=== PATIENT | male | born 1960 | race Caucasian/White ===

== ENCOUNTER 2021-04-14 19:10 | Inpatient (IN) | payer MEDICAID ==
[~2021-04-14] VITALS: Ht 188 cm; Wt 76.0 kg
[~2021-04-14 19:10] MED LIST: BENZ2TAB10 PO; DIPH25 PO; GABA-1201 PO; GLIP10 PO; INSLAN SQ; QUET100T PO; QUET200T PO
[2021-04-14 20:57] LABS: BASOPHILS % (AUTO) 0.6 % (0.0-2.0); EOSINOPHILS % (AUTO) 0.3 % (1.0-6.0); HEMATOCRIT 43.3 % (41-53); HEMOGLOBIN 14.2 g/dL (13.5-17.5); LYMPHOCYTES # (AUTO) 3.6 K/uL (1.0-4.8); LYMPHOCYTES % (AUTO) 26.8 % (22.0-44.0); MEAN CORPUSCULAR HEMOGLOBIN 28.3 pg (26.0-34.0); MEAN CORPUSCULAR HGB CONC 32.8 G/dL (31.0-37.0); MEAN CORPUSCULAR VOLUME 86 fL (80-100); MONOCYTES % (AUTO) 7.3 % (2.0-9.0); NEUTROPHILS # (AUTO) 8.7 K/uL (1.8-7.7); PLATELET COUNT (AUTO) 428 K/uL (150-450); RED BLOOD CELL COUNT(AUTO) 5.01 MIL/uL (4.50-5.90); RED CELL DISTRIBUTION WIDTH 14.2 % (11.5-14.5)
[2021-04-14 21:12] LABS: ANION GAP 10 mmol/L (8-16); CALCIUM, TOTAL 8.9 mg/dL (8.8-10.5); CARBON DIOXIDE 28 mmol/L (22-29); CHLORIDE 104 mmol/L (98-107); CREATININE 0.61 mg/dL (0.60-1.30); GLOMERULAR FILTR. RATE CALC > 60 mL/min (>60); GLUCOSE,RANDOM 177 mg/dL (70-110); SODIUM SERUM 142 mmol/L (136-145); UREA NITROGEN, BLOOD 14 mg/dL (7-18)
[2021-04-14 21:18] LABS: ALANINE AMINOTRANSFERASE 38 U/L (12-78); ALBUMIN 2.9 g/dL (3.4-5.0); ALKALINE PHOSPHATASE 149 U/L (46-116); ASPARTATE AMINOTRANSFERASE 31 U/L (15-37); BILIRUBIN,TOTAL 0.4 mg/dL (0.1-1.0); SALICYLATE < 2.8 mg/dL (2.8-20.0); TOTAL PROTEIN, SERUM 7.2 g/dL (6.4-8.2)
[2021-04-14 21:29] LABS: ACETAMINOPHEN < 2 mcg/mL (10-30)
[2021-04-14 22:23] LABS: COVID AG,FIA SOURCE NASAL SWAB
[2021-04-14] MEDS ORDERED: ACETAMINOPHEN 500 MG TABLET PO ONE (22:45)
[2021-04-14] MEDS ORDERED: ACETAMINOPHEN 650 MG/20.3 ML SOLUTION UDCUP PO ONE (22:45)
[2021-04-14] MEDS ORDERED: IBUPROFEN 600 MG TABLET PO ONE (22:45)
[2021-04-14] MEDS ORDERED: OLANZapine 5 MG RAPDIS TABLET PO PRN (23:00)
[2021-04-14 23:01] LABS: APPEARANCE,URINE CLEAR (CLEAR); BILIRUBIN,URINE NEGATIVE (NEGATIVE); GLUCOSE, URINE (UA) NEGATIVE (NEGATIVE); KETONES,URINE NEGATIVE (NEGATIVE); LEUKOCYTE ESTERASE ,URINE NEGATIVE (NEGATIVE); NITRATE,URINE NEGATIVE (NEGATIVE); OCCULT BLOOD,URINE NEGATIVE (NEGATIVE); PROTEIN,URINE SEE CONFIRM (NEGATIVE); UROBILINOGEN,URINE 0.2 mg/dL (<=1.0)
[2021-04-14 23:07] LABS: AMPHET/METH SCREEN,URINE NEGATIVE (NEGATIVE); BARBITURATE SCREEN, URINE NEGATIVE (NEGATIVE); BENZODIAZEPINES SCREEN,URINE NEGATIVE (NEGATIVE); CANNABINOID SCREEN,URINE NEGATIVE (NEGATIVE); COCAINE SCREEN,URINE NEGATIVE (NEGATIVE); METHADONE SCREEN, URINE NEGATIVE (NEGATIVE); OPIATE SCREEN,URINE NEGATIVE (NEGATIVE)
[2021-04-14 23:09] LABS: PHENCYCLIDINE SCREEN,URINE NEGATIVE (NEGATIVE); SULFOSALICYLIC ACID,URINE 1+ (Negative)
[2021-04-14 23:10] LABS: BACTERIA,URINE None Seen /HPF (None Seen); RBC,URINE None Seen /HPF (0-2); SQUAMOUS EPITHELIAL CELL,UR None Seen /LPF (None Seen); WBC,URINE None Seen /HPF (0-5)
[2021-04-15] MEDS: LORazepam 2 MG TABLET PO PRN ×3 (02:29→21:20)
[2021-04-15 05:52] LABS: CHOL/HDL RATIO 2.4 (4.2-7.3)
[2021-04-15] MEDS ORDERED: DEXTROSE 50%-WATER 25 GM/50 ML SYRINGE IVP PRN (11:00)
[2021-04-15] MEDS ORDERED: INSULIN GLARGINE,HUM.REC.ANLOG 100 UNITS/ML SQ SCH (11:00)
[2021-04-15 12:29] LABS: GLUCOSE,POINT OF CARE 328 MG/DL (70-110)
[2021-04-15 12:29] LABS: GLUCOSE,POINT OF CARE 289 MG/DL (70-110)
[2021-04-15 20:58] VITALS: BP 143/60
[2021-04-15 21:05] VITALS: BP 143/60
[2021-04-15 21:43] LABS: GLUCOMETER DEV NAME(LOC) 3E.I 2; GLUCOSE,POINT OF CARE 444 MG/DL (70-110)
[2021-04-15] MEDS ORDERED: PNEUMOCOCCAL VACCINE POLYVALENT 0.5 ML VIAL [PPSV23] IM. ONE (21:45)
[2021-04-15] MEDS ORDERED: INSULIN LISPRO 100 UNITS/ML SQ ONE (21:45)
[2021-04-16] MEDS: NICOTINE POLACRILEX 2 MG LOZENGE PO PRN ×2 (05:08→13:53)
[2021-04-16 06:42] LABS: GLUCOMETER DEV NAME(LOC) 3E.I 2; GLUCOSE,POINT OF CARE 292 MG/DL (70-110)
[2021-04-16] MEDS: INSULIN LISPRO 100 UNITS/ML SQ PRN ×2 (07:03→10:55)
[2021-04-16] MEDS: INSULIN GLARGINE,HUM.REC.ANLOG 100 UNITS/ML SQ SCH ×2 (08:29→17:51)
[2021-04-16] MEDS: LORazepam 2 MG TABLET PO PRN (09:02)
[2021-04-16 09:58] VITALS: BP 153/88
[2021-04-16 11:12] LABS: GLUCOMETER DEV NAME(LOC) 3E.I 2; GLUCOSE,POINT OF CARE 336 MG/DL (70-110)
[2021-04-16 17:58] LABS: GLUCOMETER DEV NAME(LOC) 3E.I 2; GLUCOSE,POINT OF CARE 358 MG/DL (70-110)
[2021-04-16] MEDS: QUEtiapine FUMARATE 100 MG TABLET PO SCH (20:10)
[2021-04-17 03:55] VITALS: BP 129/74
[2021-04-17] MEDS: LORazepam 2 MG TABLET PO PRN ×2 (03:56→16:03)
[2021-04-17 04:31] LABS: GLUCOMETER DEV NAME(LOC) 3E.I 2; GLUCOSE,POINT OF CARE 246 MG/DL (70-110)
[2021-04-17] MEDS: INSULIN LISPRO 100 UNITS/ML SQ PRN ×4 (06:58→21:20)
[2021-04-17] MEDS: DULoxetine HCL 30 MG CAPSULE PO SCH (09:00)
[2021-04-17] MEDS: INSULIN GLARGINE,HUM.REC.ANLOG 100 UNITS/ML SQ SCH ×2 (09:05→17:47)
[2021-04-17] MEDS ORDERED: ONDANSETRON HCL 4 MG TABLET PO PRN (09:15)
[2021-04-17] MEDS ORDERED: LOPERAMIDE HCL 2 MG CAPSULE PO PRN (09:15)
[2021-04-17] MEDS ORDERED: ALBUTEROL SULFATE HFA 90 MCG/PUFF 8 GM INHALER IH PRN (09:15)
[2021-04-17] MEDS ORDERED: NICOTINE 14 MG/24 HOUR PATCH TD PRN ×2 (09:15→09:45)
[2021-04-17] MEDS ORDERED: DOCUSATE SODIUM 100 MG CAPSULE PO PRN (09:15)
[2021-04-17] MEDS ORDERED: PETROLATUM,WHITE 28 GM JELLY TP PRN (09:15)
[2021-04-17] MEDS ORDERED: CloNIDine HCL 0.1 MG TABLET PO PRN (09:15)
[2021-04-17 11:34] LABS: GLUCOMETER DEV NAME(LOC) 3E.I 2; GLUCOSE,POINT OF CARE 366 MG/DL (70-110)
[2021-04-17 16:03] VITALS: BP 155/74
[2021-04-17 16:26] LABS: GLUCOMETER DEV NAME(LOC) 3E.I 2; GLUCOSE,POINT OF CARE 235 MG/DL (70-110)
[2021-04-17] MEDS: ACETAMINOPHEN/CODEINE 300-30 MG TABLET PO PRN (17:43)
[2021-04-17 17:48] VITALS: BP 135/70
[2021-04-17 18:43] VITALS: BP 140/76
[2021-04-17] MEDS: QUEtiapine FUMARATE 100 MG TABLET PO SCH (20:17)
[2021-04-17 20:31] LABS: GLUCOMETER DEV NAME(LOC) 3E.I 2; GLUCOSE,POINT OF CARE 361 MG/DL (70-110)
[2021-04-18] MEDS: ZOLPIDEM TARTRATE 10 MG TABLET PO PRN (01:34)
[2021-04-18] MEDS: LORazepam 2 MG TABLET PO PRN ×2 (04:03→16:45)
[2021-04-18] MEDS: NICOTINE POLACRILEX 2 MG LOZENGE PO PRN ×2 (04:06→15:16)
[2021-04-18 05:40] VITALS: BP 130/69
[2021-04-18] MEDS: ACETAMINOPHEN/CODEINE 300-30 MG TABLET PO PRN ×2 (05:45→17:50)
[2021-04-18 06:24] LABS: GLUCOMETER DEV NAME(LOC) 3E.I 2; GLUCOSE,POINT OF CARE 319 MG/DL (70-110)
[2021-04-18] MEDS: INSULIN LISPRO 100 UNITS/ML SQ PRN ×2 (06:45→11:26)
[2021-04-18] MEDS: INSULIN GLARGINE,HUM.REC.ANLOG 100 UNITS/ML SQ SCH ×2 (08:21→17:01)
[2021-04-18] MEDS: DULoxetine HCL 30 MG CAPSULE PO SCH (08:24)
[2021-04-18 11:37] LABS: GLUCOMETER DEV NAME(LOC) 3E.I 2; GLUCOSE,POINT OF CARE 258 MG/DL (70-110)
[2021-04-18 16:00] VITALS: BP 131/75
[2021-04-18 16:45] VITALS: BP 147/86
[2021-04-18] MEDS ORDERED: INSULIN LISPRO 100 UNITS/ML SQ ONE (17:15)
[2021-04-18 17:35] LABS: GLUCOMETER DEV NAME(LOC) 3E.I 2; GLUCOSE,POINT OF CARE 405 MG/DL (70-110)
[2021-04-18 17:45] VITALS: BP 142/69
[2021-04-18 17:50] VITALS: BP 146/80
[2021-04-18 18:50] VITALS: BP 139/86
[2021-04-18] MEDS: QUEtiapine FUMARATE 100 MG TABLET PO SCH (20:39)
[2021-04-19] VITALS (8 sets, daily range): BP systolic 124–139; BP diastolic 67–78
[2021-04-19] MEDS: ACETAMINOPHEN 325 MG TABLET PO PRN (00:59)
[2021-04-19] MEDS: ZOLPIDEM TARTRATE 10 MG TABLET PO PRN (01:00)
[2021-04-19] MEDS: NICOTINE POLACRILEX 2 MG LOZENGE PO PRN (01:00)
[2021-04-19 01:19] LABS: GLUCOMETER DEV NAME(LOC) 3E.I 2; GLUCOSE,POINT OF CARE 178 MG/DL (70-110)
[2021-04-19] MEDS: LORazepam 2 MG TABLET PO PRN ×2 (05:28→18:08)
[2021-04-19 05:45] LABS: GLUCOMETER DEV NAME(LOC) 3E.I 2; GLUCOSE,POINT OF CARE 237 MG/DL (70-110)
[2021-04-19] MEDS: INSULIN LISPRO 100 UNITS/ML SQ PRN ×2 (06:45→17:20)
[2021-04-19] MEDS: MULTIVITAMINS WITH MINERALS, THERAPEUTIC TABLET PO SCH (08:54)
[2021-04-19] MEDS: ACETAMINOPHEN/CODEINE 300-30 MG TABLET PO PRN ×2 (08:55→20:44)
[2021-04-19] MEDS: DULoxetine HCL 30 MG CAPSULE PO SCH (09:00)
[2021-04-19] MEDS: INSULIN GLARGINE,HUM.REC.ANLOG 100 UNITS/ML SQ SCH ×2 (09:21→17:21)
[2021-04-19 11:05] LABS: COVID AG,FIA SOURCE NASOPHARYNGEAL
[2021-04-19 17:48] LABS: GLUCOMETER DEV NAME(LOC) 3E.I 2; GLUCOSE,POINT OF CARE 385 MG/DL (70-110)
[2021-04-19] MEDS: IBUPROFEN 400 MG TABLET PO PRN (19:15)
[2021-04-19] MEDS: MIRTAZAPINE 15 MG TABLET PO SCH (20:43)
[2021-04-20 08:38] VITALS: BP 154/90
[2021-04-20] MEDS: ACETAMINOPHEN/CODEINE 300-30 MG TABLET PO PRN ×2 (08:38→22:07)
[2021-04-20] MEDS: INSULIN GLARGINE,HUM.REC.ANLOG 100 UNITS/ML SQ SCH ×2 (08:52→17:41)
[2021-04-20] MEDS: MULTIVITAMINS WITH MINERALS, THERAPEUTIC TABLET PO SCH (08:53)
[2021-04-20 08:58] LABS: GLUCOMETER DEV NAME(LOC) 3E.I 2; GLUCOSE,POINT OF CARE 210 MG/DL (70-110)
[2021-04-20 09:40] VITALS: BP 154/90
[2021-04-20] MEDS: LORazepam 2 MG TABLET PO PRN (11:26)
[2021-04-20] MEDS: INSULIN LISPRO 100 UNITS/ML SQ PRN (11:46)
[2021-04-20 11:55] LABS: GLUCOMETER DEV NAME(LOC) 3E.I 2; GLUCOSE,POINT OF CARE 194 MG/DL (70-110)
[2021-04-20] MEDS: NICOTINE POLACRILEX 2 MG LOZENGE PO PRN (15:59)
[2021-04-20 16:29] LABS: GLUCOMETER DEV NAME(LOC) 3E.I 2; GLUCOSE,POINT OF CARE 232 MG/DL (70-110)
[2021-04-20 18:09] VITALS: BP 145/85
[2021-04-20] MEDS: IBUPROFEN 400 MG TABLET PO PRN (18:09)
[2021-04-20 19:09] VITALS: BP 146/86
[2021-04-20] MEDS: MIRTAZAPINE 15 MG TABLET PO SCH (20:26)
[2021-04-20 22:07] VITALS: BP 147/84
[2021-04-20 23:07] VITALS: BP_SYST 145; BP_SYST 146; BP_DIAS 75; BP_DIAS 84
[2021-04-21 02:39] VITALS: BP 149/78
[2021-04-21] MEDS: MAG HYDROX/AL HYDROX/SIMETH ES 30 ML SUSPENSION UDCUP PO PRN (05:27)
[2021-04-21 05:48] LABS: GLUCOMETER DEV NAME(LOC) 3E.I 2; GLUCOSE,POINT OF CARE 252 MG/DL (70-110)
[2021-04-21] MEDS: INSULIN LISPRO 100 UNITS/ML SQ PRN ×2 (06:44→21:13)
[2021-04-21] MEDS: NICOTINE POLACRILEX 2 MG LOZENGE PO PRN (07:41)
[2021-04-21] MEDS: MULTIVITAMINS WITH MINERALS, THERAPEUTIC TABLET PO SCH (07:42)
[2021-04-21] MEDS: INSULIN GLARGINE,HUM.REC.ANLOG 100 UNITS/ML SQ SCH ×2 (07:43→17:24)
[2021-04-21 08:40] VITALS: BP 140/74
[2021-04-21] MEDS: ACETAMINOPHEN/CODEINE 300-30 MG TABLET PO PRN ×2 (08:42→17:58)
[2021-04-21] MEDS: CEPHALEXIN MONOHYDRATE 500 MG CAPSULE PO SCH ×2 (13:00→16:55)
[2021-04-21 16:45] LABS: GLUCOMETER DEV NAME(LOC) 3E.I 2; GLUCOSE,POINT OF CARE 275 MG/DL (70-110)
[2021-04-21] MEDS: SULFAMETHOX/TRIMETH DS 800-160 MG/TABLET PO SCH (16:55)
[2021-04-21 17:58] VITALS: BP 147/93
[2021-04-21 18:58] VITALS: BP 139/89
[2021-04-21] MEDS: MIRTAZAPINE 15 MG TABLET PO SCH (20:09)
[2021-04-21 20:56] LABS: GLUCOMETER DEV NAME(LOC) 3E.I 2; GLUCOSE,POINT OF CARE 301 MG/DL (70-110)
[2021-04-22] MEDS: MAG HYDROX/AL HYDROX/SIMETH ES 30 ML SUSPENSION UDCUP PO PRN (01:44)
[2021-04-22] MEDS: ACETAMINOPHEN 325 MG TABLET PO PRN (01:45)
[2021-04-22 02:35] VITALS: BP 152/80
[2021-04-22] MEDS: LORazepam 2 MG TABLET PO PRN ×2 (02:36→12:48)
[2021-04-22] MEDS: GuaiFENesin/D-METHORPHAN [SUGAR-FREE] 200-20MG/10 ML SYRUP UDCUP PO PRN ×3 (02:43→15:11)
[2021-04-22 08:05] VITALS: BP 158/73
[2021-04-22] MEDS: INSULIN GLARGINE,HUM.REC.ANLOG 100 UNITS/ML SQ SCH ×2 (08:06→17:00)
[2021-04-22] MEDS: ACETAMINOPHEN/CODEINE 300-30 MG TABLET PO PRN ×2 (08:07→20:03)
[2021-04-22 08:17] LABS: GLUCOMETER DEV NAME(LOC) 3E.I 2; GLUCOSE,POINT OF CARE 204 MG/DL (70-110)
[2021-04-22] MEDS: CEPHALEXIN MONOHYDRATE 500 MG CAPSULE PO SCH ×3 (09:00→17:00)
[2021-04-22] MEDS: SULFAMETHOX/TRIMETH DS 800-160 MG/TABLET PO SCH ×2 (09:00→17:00)
[2021-04-22] MEDS: MULTIVITAMINS WITH MINERALS, THERAPEUTIC TABLET PO SCH (10:55)
[2021-04-22] MEDS: NICOTINE POLACRILEX 2 MG LOZENGE PO PRN (15:11)
[2021-04-22 20:03] VITALS: BP 145/78
[2021-04-22] MEDS: MIRTAZAPINE 15 MG TABLET PO SCH ×2 (20:07→21:11)
[2021-04-22 21:03] VITALS: BP_SYST 140; BP_SYST 142; BP_DIAS 75
[2021-04-23] MEDS: NICOTINE POLACRILEX 2 MG LOZENGE PO PRN (02:34)
[2021-04-23] MEDS: LORazepam 2 MG TABLET PO PRN ×2 (02:34→15:00)
[2021-04-23] MEDS: ACETAMINOPHEN/CODEINE 300-30 MG TABLET PO PRN ×3 (05:59→18:02)
[2021-04-23 06:02] VITALS: BP 138/70
[2021-04-23 06:18] LABS: BASOPHILS % (AUTO) 1.2 % (0.0-2.0); EOSINOPHILS % (AUTO) 2.2 % (1.0-6.0); HEMATOCRIT 45.2 % (41-53); LYMPHOCYTES # (AUTO) 3.4 K/uL (1.0-4.8); LYMPHOCYTES % (AUTO) 31.9 % (22.0-44.0); MEAN CORPUSCULAR HEMOGLOBIN 28.8 pg (26.0-34.0); MEAN CORPUSCULAR HGB CONC 33.2 G/dL (31.0-37.0); MEAN CORPUSCULAR VOLUME 87 fL (80-100); MONOCYTES # (AUTO) 1.1 K/uL (0.1-1.0); MONOCYTES % (AUTO) 10.1 % (2.0-9.0); NEUTROPHILS # (AUTO) 5.9 K/uL (1.8-7.7); NEUTROPHILS % (AUTO) 54.6 % (40.0-70.0); PLATELET COUNT (AUTO) 566 K/uL (150-450); RED BLOOD CELL COUNT(AUTO) 5.21 MIL/uL (4.50-5.90); RED CELL DISTRIBUTION WIDTH 14.8 % (11.5-14.5)
[2021-04-23 06:20] LABS: GLUCOMETER DEV NAME(LOC) 3E.I 2; GLUCOSE,POINT OF CARE 142 MG/DL (70-110)
[2021-04-23 06:45] LABS: ANION GAP 6 mmol/L (8-16); CALCIUM, TOTAL 8.7 mg/dL (8.8-10.5); CARBON DIOXIDE 29 mmol/L (22-29); CHLORIDE 102 mmol/L (98-107); CREATININE 0.64 mg/dL (0.60-1.30); GLOMERULAR FILTR. RATE CALC > 60 mL/min (>60); GLUCOSE,RANDOM 153 mg/dL (70-110); POTASSIUM 4.1 mmol/L (3.5-5.1); SODIUM SERUM 137 mmol/L (136-145); UREA NITROGEN, BLOOD 14 mg/dL (7-18)
[2021-04-23] MEDS ORDERED: RINGERS SOLUTION,LACTATED 1,000 ML IV ONE (07:00)
[2021-04-23] MEDS ORDERED: LIDOCAINE/PF 1% 30 ML VIAL ONE (07:03)
[2021-04-23] MEDS ORDERED: BUPIVACAINE HCL/PF 0.5% 30 ML VIAL ONE (07:03)
[2021-04-23] MEDS ORDERED: GELATIN SPONGE,ABSORBABLE 50 MM TP ONE (07:03)
[2021-04-23] MEDS ORDERED: POVIDONE-IODINE 30 GM OINTMENT TP ONE (07:03)
[2021-04-23] MEDS ORDERED: SODIUM CHLORIDE 0.9% 0 ML ONE (07:03)
[2021-04-23] MEDS ORDERED: THROMBIN, BOVINE 20000 UNITS/VIAL POWDER TP ONE (07:04)
[2021-04-23] MEDS ORDERED: SODIUM CL IRRIG SOLN BAG 3,000 ML IRRIG ONE (07:04)
[2021-04-23] MEDS ORDERED: MEPERIDINE-PF 25 MG/ML VIAL IVP PRN (07:45)
[2021-04-23] MEDS ORDERED: FentaNYL CITRATE PF 100 MCG/2 ML VIAL IVP PRN (07:45)
[2021-04-23] MEDS ORDERED: VANCOMYCIN HCL 1 GM/VIAL ONE (08:00)
[2021-04-23] MEDS ORDERED: OXYGEN THERAPY IH SCH (08:00)
[2021-04-23] MEDS: CEPHALEXIN MONOHYDRATE 500 MG CAPSULE PO SCH ×4 (09:00→16:36)
[2021-04-23] MEDS: INSULIN GLARGINE,HUM.REC.ANLOG 100 UNITS/ML SQ SCH ×2 (09:00→16:59)
[2021-04-23] MEDS ORDERED: HYDROmorphone 2 MG/ML VIAL ONE (09:11)
[2021-04-23] MEDS: HYDROmorphone 2 MG/ML VIAL IVP PRN ×2 (09:12→09:32)
[2021-04-23 09:45] VITALS: BP 154/94
[2021-04-23] MEDS: INSULIN LISPRO 100 UNITS/ML SQ PRN ×3 (11:45→21:11)
[2021-04-23 11:46] LABS: GLUCOMETER DEV NAME(LOC) 3E.I 2; GLUCOSE,POINT OF CARE 128 MG/DL (70-110)
[2021-04-23] MEDS: SULFAMETHOX/TRIMETH DS 800-160 MG/TABLET PO SCH ×2 (11:55→16:36)
[2021-04-23] MEDS: MULTIVITAMINS WITH MINERALS, THERAPEUTIC TABLET PO SCH (11:56)
[2021-04-23 16:00] VITALS: BP 137/69
[2021-04-23 16:35] LABS: GLUCOMETER DEV NAME(LOC) 3E.I 2; GLUCOSE,POINT OF CARE 458 MG/DL (70-110)
[2021-04-23] MEDS ORDERED: INSULIN LISPRO 100 UNITS/ML SQ ONE (16:45)
[2021-04-23 18:02] VITALS: BP 146/76
[2021-04-23 19:02] VITALS: BP 139/82
[2021-04-23] MEDS: MIRTAZAPINE 15 MG TABLET PO SCH (20:27)
[2021-04-23 20:38] LABS: GLUCOMETER DEV NAME(LOC) 3E.I 2; GLUCOSE,POINT OF CARE 249 MG/DL (70-110)
[2021-04-24] MEDS: MAG HYDROX/AL HYDROX/SIMETH ES 30 ML SUSPENSION UDCUP PO PRN (05:30)
[2021-04-24] MEDS ORDERED: FentaNYL CITRATE PF 100 MCG/2 ML VIAL IVP ONE (05:37)
[2021-04-24] MEDS ORDERED: KETAMINE HCL 50 MG/ML 10 ML VIAL IVP ONE (05:37)
[2021-04-24] MEDS ORDERED: MIDAZOLAM HCL 2 MG/2 ML VIAL IVP ONE (05:37)
[2021-04-24 05:40] LABS: GLUCOMETER DEV NAME(LOC) 3E.I 2; GLUCOSE,POINT OF CARE 157 MG/DL (70-110)
[2021-04-24] MEDS: INSULIN LISPRO 100 UNITS/ML SQ PRN ×2 (06:24→11:39)
[2021-04-24] MEDS: ACETAMINOPHEN/CODEINE 300-30 MG TABLET PO PRN ×2 (08:58→19:15)
[2021-04-24] MEDS: MULTIVITAMINS WITH MINERALS, THERAPEUTIC TABLET PO SCH (08:59)
[2021-04-24] MEDS: CEPHALEXIN MONOHYDRATE 500 MG CAPSULE PO SCH ×3 (08:59→17:12)
[2021-04-24] MEDS: SULFAMETHOX/TRIMETH DS 800-160 MG/TABLET PO SCH ×2 (08:59→17:12)
[2021-04-24] MEDS: MAGNESIUM HYDROXIDE SUSPENSION 30 ML UDCUP PO PRN (09:46)
[2021-04-24] MEDS: INSULIN GLARGINE,HUM.REC.ANLOG 100 UNITS/ML SQ SCH ×2 (09:46→18:06)
[2021-04-24 10:06] LABS: GLUCOMETER DEV NAME(LOC) 3E.I 2; GLUCOSE,POINT OF CARE 289 MG/DL (70-110)
[2021-04-24 13:03] VITALS: BP 147/76
[2021-04-24] MEDS: LORazepam 2 MG TABLET PO PRN (14:03)
[2021-04-24 17:31] LABS: GLUCOMETER DEV NAME(LOC) 3E.I 2; GLUCOSE,POINT OF CARE 292 MG/DL (70-110)
[2021-04-24] MEDS: NICOTINE POLACRILEX 2 MG LOZENGE PO PRN (19:17)
[2021-04-24 19:54] LABS: GLUCOMETER DEV NAME(LOC) 3E.I 2; GLUCOSE,POINT OF CARE 280 MG/DL (70-110)
[2021-04-24] MEDS: MIRTAZAPINE 15 MG TABLET PO SCH ×2 (21:00→21:49)
[2021-04-25] MEDS: MAG HYDROX/AL HYDROX/SIMETH ES 30 ML SUSPENSION UDCUP PO PRN (04:50)
[2021-04-25] MEDS: MAGNESIUM HYDROXIDE SUSPENSION 30 ML UDCUP PO PRN (04:52)
[2021-04-25] MEDS: LORazepam 2 MG TABLET PO PRN ×2 (05:31→18:44)
[2021-04-25 05:39] LABS: GLUCOMETER DEV NAME(LOC) 3E.I 2; GLUCOSE,POINT OF CARE 125 MG/DL (70-110)
[2021-04-25] MEDS: INSULIN LISPRO 100 UNITS/ML SQ PRN ×2 (06:34→18:46)
[2021-04-25 08:20] VITALS: BP 138/68
[2021-04-25] MEDS: MULTIVITAMINS WITH MINERALS, THERAPEUTIC TABLET PO SCH (08:22)
[2021-04-25] MEDS: CEPHALEXIN MONOHYDRATE 500 MG CAPSULE PO SCH ×3 (08:22→18:34)
[2021-04-25] MEDS: SULFAMETHOX/TRIMETH DS 800-160 MG/TABLET PO SCH ×2 (08:22→18:34)
[2021-04-25] MEDS: ACETAMINOPHEN/CODEINE 300-30 MG TABLET PO PRN (08:23)
[2021-04-25] MEDS: INSULIN GLARGINE,HUM.REC.ANLOG 100 UNITS/ML SQ SCH ×2 (09:06→18:45)
[2021-04-25] MEDS ORDERED: MINERAL OIL 133 ML ENEMA PR ONE (14:45)
[2021-04-25 18:49] LABS: GLUCOMETER DEV NAME(LOC) 3E.I 2; GLUCOSE,POINT OF CARE 297 MG/DL (70-110)
[2021-04-25] MEDS: MIRTAZAPINE 15 MG TABLET PO SCH (20:24)
[2021-04-25 20:50] LABS: GLUCOMETER DEV NAME(LOC) 3E.I 2; GLUCOSE,POINT OF CARE 224 MG/DL (70-110)
[2021-04-26 02:50] VITALS: BP 135/94
[2021-04-26] MEDS: ACETAMINOPHEN/CODEINE 300-30 MG TABLET PO PRN ×2 (02:51→16:51)
[2021-04-26 03:17] LABS: GLUCOMETER DEV NAME(LOC) 3E.I 2; GLUCOSE,POINT OF CARE 134 MG/DL (70-110)
[2021-04-26] MEDS: NICOTINE POLACRILEX 2 MG LOZENGE PO PRN ×2 (03:25→16:51)
[2021-04-26 06:45] LABS: GLUCOMETER DEV NAME(LOC) 3E.I 2; GLUCOSE,POINT OF CARE 121 MG/DL (70-110)
[2021-04-26] MEDS: SULFAMETHOX/TRIMETH DS 800-160 MG/TABLET PO SCH ×3 (08:56→16:00)
[2021-04-26] MEDS: CEPHALEXIN MONOHYDRATE 500 MG CAPSULE PO SCH ×4 (08:56→16:00)
[2021-04-26] MEDS: MULTIVITAMINS WITH MINERALS, THERAPEUTIC TABLET PO SCH ×2 (08:56→09:00)
[2021-04-26] MEDS: INSULIN GLARGINE,HUM.REC.ANLOG 100 UNITS/ML SQ SCH ×2 (09:02→17:02)
[2021-04-26] MEDS: INSULIN LISPRO 100 UNITS/ML SQ PRN ×2 (11:19→17:03)
[2021-04-26 11:27] LABS: GLUCOMETER DEV NAME(LOC) 3E.I 2; GLUCOSE,POINT OF CARE 210 MG/DL (70-110)
[2021-04-26 11:40] VITALS: BP 124/70
[2021-04-26] MEDS: LORazepam 2 MG TABLET PO PRN (11:56)
[2021-04-26 15:49] LABS: COVID AG,FIA SOURCE NASOPHARYNGEAL
[2021-04-26 16:00] VITALS: BP 125/58
[2021-04-26 16:21] LABS: GLUCOMETER DEV NAME(LOC) 3E.I 2; GLUCOSE,POINT OF CARE 244 MG/DL (70-110)
[2021-04-26] MEDS: MIRTAZAPINE 15 MG TABLET PO SCH (20:29)
[2021-04-26 20:46] LABS: GLUCOMETER DEV NAME(LOC) 3E.I 2; GLUCOSE,POINT OF CARE 222 MG/DL (70-110)
[2021-04-27] MEDS: LORazepam 2 MG TABLET PO PRN ×2 (03:45→16:02)
[2021-04-27 04:53] VITALS: BP 134/74
[2021-04-27] MEDS: MULTIVITAMINS WITH MINERALS, THERAPEUTIC TABLET PO SCH (08:39)
[2021-04-27] MEDS: SULFAMETHOX/TRIMETH DS 800-160 MG/TABLET PO SCH ×2 (08:39→16:01)
[2021-04-27] MEDS: CEPHALEXIN MONOHYDRATE 500 MG CAPSULE PO SCH ×3 (08:39→16:01)
[2021-04-27 08:40] VITALS: BP 118/71
[2021-04-27] MEDS: INSULIN GLARGINE,HUM.REC.ANLOG 100 UNITS/ML SQ SCH ×2 (08:41→17:17)
[2021-04-27] MEDS: ACETAMINOPHEN/CODEINE 300-30 MG TABLET PO PRN ×2 (08:44→17:48)
[2021-04-27 09:41] VITALS: BP 126/77
[2021-04-27 16:21] VITALS: BP 124/79
[2021-04-27] MEDS ORDERED: SULFAMETHOX/TRIMETH DS 800-160 MG/TABLET PO SCH ×2 (17:00)
[2021-04-27] MEDS: INSULIN LISPRO 100 UNITS/ML SQ PRN (17:18)
[2021-04-27 17:27] LABS: GLUCOMETER DEV NAME(LOC) 3E.I 2; GLUCOSE,POINT OF CARE 203 MG/DL (70-110)
[2021-04-27] MEDS: GuaiFENesin/D-METHORPHAN [SUGAR-FREE] 200-20MG/10 ML SYRUP UDCUP PO PRN (17:50)
[2021-04-27 20:16] LABS: GLUCOMETER DEV NAME(LOC) 3E.I 2; GLUCOSE,POINT OF CARE 73 MG/DL (70-110)
[2021-04-27] MEDS: MIRTAZAPINE 15 MG TABLET PO SCH (20:24)
[2021-04-28] MEDS: LORazepam 2 MG TABLET PO PRN ×2 (01:08→14:49)
[2021-04-28 08:18] LABS: GLUCOMETER DEV NAME(LOC) 3E.I 2; GLUCOSE,POINT OF CARE 159 MG/DL (70-110)
[2021-04-28 08:19] VITALS: BP 141/73
[2021-04-28] MEDS: SULFAMETHOX/TRIMETH DS 800-160 MG/TABLET PO SCH ×2 (08:19→16:06)
[2021-04-28] MEDS: CEPHALEXIN MONOHYDRATE 500 MG CAPSULE PO SCH ×3 (08:19→16:06)
[2021-04-28] MEDS: MULTIVITAMINS WITH MINERALS, THERAPEUTIC TABLET PO SCH (08:19)
[2021-04-28] MEDS: ACETAMINOPHEN/CODEINE 300-30 MG TABLET PO PRN ×2 (08:20→20:21)
[2021-04-28] MEDS: INSULIN GLARGINE,HUM.REC.ANLOG 100 UNITS/ML SQ SCH ×2 (08:22→17:43)
[2021-04-28] MEDS: INSULIN LISPRO 100 UNITS/ML SQ PRN ×2 (11:49→17:44)
[2021-04-28 11:50] LABS: GLUCOMETER DEV NAME(LOC) 3E.I 2; GLUCOSE,POINT OF CARE 283 MG/DL (70-110)
[2021-04-28] MEDS: GuaiFENesin/D-METHORPHAN [SUGAR-FREE] 200-20MG/10 ML SYRUP UDCUP PO PRN (16:05)
[2021-04-28] MEDS: NICOTINE POLACRILEX 2 MG LOZENGE PO PRN (16:07)
[2021-04-28 16:38] LABS: GLUCOMETER DEV NAME(LOC) 3E.I 2; GLUCOSE,POINT OF CARE 273 MG/DL (70-110)
[2021-04-28 16:41] VITALS: BP 131/82
[2021-04-28] MEDS: MIRTAZAPINE 15 MG TABLET PO SCH (20:04)
[2021-04-28 20:21] VITALS: BP 136/90
[2021-04-28 21:21] VITALS: BP 135/79
[2021-04-29 06:19] LABS: GLUCOMETER DEV NAME(LOC) 3E.I 2; GLUCOSE,POINT OF CARE 71 MG/DL (70-110)
[2021-04-29] MEDS: INSULIN LISPRO 100 UNITS/ML SQ PRN ×3 (06:38→17:43)
[2021-04-29 06:54] VITALS: BP 125/81
[2021-04-29] MEDS: LORazepam 2 MG TABLET PO PRN ×3 (07:00→19:01)
[2021-04-29 09:40] LABS: GLUCOMETER DEV NAME(LOC) 3E.I 2; GLUCOSE,POINT OF CARE 225 MG/DL (70-110)
[2021-04-29 09:53] VITALS: BP_SYST 145; BP_DIAS 73; BP_DIAS 75
[2021-04-29] MEDS: CEPHALEXIN MONOHYDRATE 500 MG CAPSULE PO SCH ×3 (09:55→16:08)
[2021-04-29] MEDS: MULTIVITAMINS WITH MINERALS, THERAPEUTIC TABLET PO SCH (09:56)
[2021-04-29] MEDS: ACETAMINOPHEN/CODEINE 300-30 MG TABLET PO PRN (09:56)
[2021-04-29] MEDS: SULFAMETHOX/TRIMETH DS 800-160 MG/TABLET PO SCH ×2 (09:56→16:08)
[2021-04-29] MEDS: INSULIN GLARGINE,HUM.REC.ANLOG 100 UNITS/ML SQ SCH ×2 (09:57→17:43)
[2021-04-29] MEDS: GuaiFENesin/D-METHORPHAN [SUGAR-FREE] 200-20MG/10 ML SYRUP UDCUP PO PRN (11:26)
[2021-04-29] MEDS: NICOTINE POLACRILEX 2 MG LOZENGE PO PRN ×2 (11:27→20:05)
[2021-04-29 11:53] LABS: GLUCOMETER DEV NAME(LOC) 3E.I 2; GLUCOSE,POINT OF CARE 209 MG/DL (70-110)
[2021-04-29 16:32] LABS: GLUCOMETER DEV NAME(LOC) 3E.I 2; GLUCOSE,POINT OF CARE 214 MG/DL (70-110)
[2021-04-29] MEDS: MIRTAZAPINE 15 MG TABLET PO SCH (20:19)
[2021-04-29 22:17] LABS: GLUCOMETER DEV NAME(LOC) 3E.I 2; GLUCOSE,POINT OF CARE 147 MG/DL (70-110)
[2021-04-30 02:16] VITALS: BP 150/90
[2021-04-30] MEDS: ACETAMINOPHEN/CODEINE 300-30 MG TABLET PO PRN ×2 (02:22→09:33)
[2021-04-30] MEDS: GuaiFENesin/D-METHORPHAN [SUGAR-FREE] 200-20MG/10 ML SYRUP UDCUP PO PRN (02:24)
[2021-04-30 08:08] VITALS: BP 151/84
[2021-04-30] MEDS: SULFAMETHOX/TRIMETH DS 800-160 MG/TABLET PO SCH ×2 (08:14→18:49)
[2021-04-30] MEDS: CEPHALEXIN MONOHYDRATE 500 MG CAPSULE PO SCH ×3 (08:14→18:49)
[2021-04-30] MEDS: MULTIVITAMINS WITH MINERALS, THERAPEUTIC TABLET PO SCH (08:14)
[2021-04-30] MEDS: INSULIN GLARGINE,HUM.REC.ANLOG 100 UNITS/ML SQ SCH ×2 (08:28→18:53)
[2021-04-30 09:30] VITALS: BP 145/61
[2021-04-30 10:32] VITALS: BP 154/83
[2021-04-30] MEDS: LORazepam 2 MG TABLET PO PRN (14:33)
[2021-04-30 19:04] LABS: GLUCOMETER DEV NAME(LOC) 3E.I 2; GLUCOSE,POINT OF CARE 308 MG/DL (70-110)
[2021-04-30] MEDS: MIRTAZAPINE 15 MG TABLET PO SCH (20:31)
[2021-05-01 02:00] VITALS: BP 149/82
[2021-05-01] MEDS: ACETAMINOPHEN/CODEINE 300-30 MG TABLET PO PRN ×2 (02:06→10:20)
[2021-05-01] MEDS: NICOTINE POLACRILEX 2 MG LOZENGE PO PRN (02:11)
[2021-05-01 02:31] LABS: GLUCOMETER DEV NAME(LOC) 3E.I 2; GLUCOSE,POINT OF CARE 104 MG/DL (70-110)
[2021-05-01] MEDS: GuaiFENesin/D-METHORPHAN [SUGAR-FREE] 200-20MG/10 ML SYRUP UDCUP PO PRN ×2 (03:02→20:04)
[2021-05-01] MEDS: LORazepam 2 MG TABLET PO PRN ×2 (04:15→14:07)
[2021-05-01] MEDS: MULTIVITAMINS WITH MINERALS, THERAPEUTIC TABLET PO SCH (09:47)
[2021-05-01] MEDS: SULFAMETHOX/TRIMETH DS 800-160 MG/TABLET PO SCH (09:48)
[2021-05-01] MEDS: CEPHALEXIN MONOHYDRATE 500 MG CAPSULE PO SCH (09:48)
[2021-05-01] MEDS: INSULIN GLARGINE,HUM.REC.ANLOG 100 UNITS/ML SQ SCH ×2 (09:51→17:37)
[2021-05-01 10:15] VITALS: BP 141/84
[2021-05-01 11:13] LABS: GLUCOMETER DEV NAME(LOC) 3E.I 2; GLUCOSE,POINT OF CARE 220 MG/DL (70-110)
[2021-05-01 11:20] VITALS: BP 141/93
[2021-05-01] MEDS ORDERED: ACETAMINOPHEN/CODEINE 300-30 MG TABLET PO PRN (14:45)
[2021-05-01 16:20] VITALS: BP 148/73
[2021-05-01 16:43] LABS: GLUCOMETER DEV NAME(LOC) 3E.I 2; GLUCOSE,POINT OF CARE 246 MG/DL (70-110)
[2021-05-01] MEDS: MIRTAZAPINE 15 MG TABLET PO SCH (19:59)
[2021-05-02 04:20] VITALS: BP 130/85
[2021-05-02] MEDS: NICOTINE POLACRILEX 2 MG LOZENGE PO PRN (04:33)
[2021-05-02 05:27] LABS: GLUCOMETER DEV NAME(LOC) 3E.I 2; GLUCOSE,POINT OF CARE 151 MG/DL (70-110)
[2021-05-02] MEDS: GuaiFENesin/D-METHORPHAN [SUGAR-FREE] 200-20MG/10 ML SYRUP UDCUP PO PRN (05:44)
[2021-05-02] MEDS: MULTIVITAMINS WITH MINERALS, THERAPEUTIC TABLET PO SCH (08:56)
[2021-05-02] MEDS: INSULIN GLARGINE,HUM.REC.ANLOG 100 UNITS/ML SQ SCH (08:59)
[2021-05-02] MEDS ORDERED: MIRT-89 PO (10:51)
[2021-05-02] MEDS ORDERED: MULT-1239 PO (11:12)
== END 2021-05-02 13:50 | disposition home or self-care (01) | DRG 740 ==
LOC: EMS 19:12 → 3EI 04-15 19:08
PROVIDERS: ATTEND Psychiatry & Neurology Psychiatry
PROC: 0QBN0ZZ Excision of Right Metatarsal, Open Approach (ICD-10-PCS; principal; 2021-04-22)
DX: F25.1 Schizoaffective disorder, depressive type (principal); E11.40 Type 2 diabetes mellitus with diabetic neuropathy, unspecified; E11.69 Type 2 diabetes mellitus with other specified complication; E11.65 Type 2 diabetes mellitus with hyperglycemia; F11.20 Opioid dependence, uncomplicated; R45.851 Suicidal ideations; F17.210 Nicotine dependence, cigarettes, uncomplicated; B19.20 Unspecified viral hepatitis C without hepatic coma; F32.9 Major depressive disorder, single episode, unspecified; Z20.822 Contact with and (suspected) exposure to COVID-19; F41.9 Anxiety disorder, unspecified; M19.90 Unspecified osteoarthritis, unspecified site; I10 Essential (primary) hypertension; K21.9 Gastro-esophageal reflux disease without esophagitis; M86.8X7 Other osteomyelitis, ankle and foot; Z59.0 Homelessness; Z65.3 Problems related to other legal circumstances; Z79.4 Long term (current) use of insulin; Z89.411 Acquired absence of right great toe; Z90.81 Acquired absence of spleen; Z28.21 Immunization not carried out because of patient refusal; Z88.8 Allergy status to other drugs, medicaments and biological substances; Z79.899 Other long term (current) drug therapy
CPT/HCPCS: 80048; 80053; 80061; 81001; 81002; 82962; 85025; 87070; 87077; 87186; 87205; 88304; 88311; 97162; 97165; 99285; A9575; G0480; G0481; J1170; J1815; J2250; J3010; J3370; J3490; J7030; J7120